=== PATIENT | male | born 1965 | race Caucasian/White ===

== ENCOUNTER 2020-12-10 12:13 | Emergency (ER) | payer BC, OTHER ==
[~2020-12-10] VITALS: Ht 182.9 cm; Wt 117.9 kg
--- NOTE | 2020-12-10 12:30 | NUR ---
BIBS. L FLANK PAIN X JESSICA
[2020-12-10 12:45] LABS: BILIRUBIN,URINE SMALL (NEGATIVE); COLOR,URINE YELLOW (YELLOW); LEUKOCYTE ESTERASE ,URINE Negative (NEGATIVE); NITRITE, URINE Negative (NEGATIVE); PH,URINE 5.5 (5.0-8.0); PROTEIN,URINE 100 mg/dl (NEGATIVE); UGLUCOSE Negative (NEGATIVE); UROBILINOGEN,URINE 0.2 EU/dL (0.2)
[2020-12-10 12:47] LABS: BACTERIA,URINE Rare /HPF (None Seen); SQUAMOUS EPITHELIAL CELL,UR Few /HPF (None Seen); WBC,URINE 0-2 /HPF (0-3)
[2020-12-10] MEDS ORDERED: KETOROLAC TROMETHAMINE 15 MG/ML VIAL ONE (12:48)
[2020-12-10 12:51] LABS: BASOPHILS # (AUTO) 0.1 /CMM (0.0-0.2); BASOPHILS % (AUTO) 0.7 % (0.0-2.0); EOSINOPHILS % (AUTO) 3.7 % (0.0-6.0); HEMATOCRIT 45 % (39-51); HEMOGLOBIN 15.3 g/dL (13.5-17.5); LYMPHOCYTES # (AUTO) 1.1 /CMM (0.8-4.8); LYMPHOCYTES % (AUTO) 15.2 % (20.0-44.0); MEAN CORPUSCULAR HGB CONC 34 g/dl (31.0-36.0); MEAN CORPUSCULAR VOLUME 90 fL (80-96); MONOCYTES # (AUTO) 0.5 /CMM (0.1-1.30); MONOCYTES % (AUTO) 6.5 % (2.0-12.0); NEUTROPHILS # (AUTO) 5.5 /CMM (1.8-8.9); NEUTROPHILS % (AUTO) 73.9 % (43.0-81.0); PLATELET COUNT (AUTO) 287 /CMM (150-450); RED BLOOD CELL COUNT(AUTO) 4.99 MIL/uL (4.5-6.0); WHITE BLOOD COUNT (AUTO) 7.5 K/uL (4.3-11.0)
[2020-12-10] MEDS: IV NS 0.9% 1,000 ML BAG IV ONE (12:55)
[2020-12-10 13:02] LABS: CALCIUM, SERUM 9.8 mg/dL (8.5-10.1); CREATININE 1.2 mg/dL (0.6-1.3); POTASSIUM 3.9 mmol/L (3.5-5.1)
[2020-12-10] MEDS: KETOROLAC TROMETHAMINE INJ 30 MG/ML VIAL IV ONE (13:03)
[2020-12-10 13:08] LABS: ALBUMIN 4.2 g/dL (3.4-5.0); BILIRUBIN,DIRECT 0.2 mg/dL (0.0-0.2); BILIRUBIN,TOTAL 0.9 mg/dL (0.2-1.0); TOTAL PROTEIN, SERUM 8.1 g/dL (6.4-8.2)
--- NOTE | 2020-12-10 13:30 | NUR ---
PATIENT DENIES PAIN AT THIS TIME, REFUSED PAIN MEDICATION.
[2020-12-10] MEDS ORDERED: OXYC-128 PO (14:17)
[2020-12-10] MEDS ORDERED: IBUP-1955 PO (14:17)
[2020-12-10] MEDS ORDERED: TAMS-12 PO (14:17)
[2020-12-10] MEDS ORDERED: ONDA4TAB5 PO (14:17)
[2020-12-10] MEDS: FENTANYL PF 100MCG/2ML AMPUL IV ONE (14:21)
[2020-12-10 14:33] VITALS: BP 131/95
--- NOTE | 2020-12-10 14:35 | NUR ---
Patient a/ox4, breathing even and unlabored, no sob noted, ambulatory with steady gait, no distress noted, IV removed. Catheter intact and site benign. Pressure and 4x4 applied to site. No bleeding noted.Patient discharged to home in stable condition. Written and verbal after care instructions given. Patient verbalizes understanding of instruction.
== END 2020-12-10 14:34 | disposition home or self-care (01) ==
LOC: ER 12:23
DX: N20.0 Calculus of kidney (principal); F10.10 Alcohol abuse, uncomplicated; Y90.9 Presence of alcohol in blood, level not specified
CPT/HCPCS: 36415; 74176; 80048; 80076; 81001; 83690; 85025; 96360; 99284; J7030; C1751; J1885